=== PATIENT | female | born 1965 | race Caucasian/White ===

== ENCOUNTER 2016-07-11 18:31 | Inpatient (IN) | payer OTHER ==
[2016-07-11] MEDS ORDERED: MAGNESIUM SULF 50% (8.12 MEQ/2 ML-1 GM VIAL) IVPB ONE (20:07)
[2016-07-11] MEDS ORDERED: IPRATROPIUM BR 0.02% 0.5 MG/2.5 ML VIAL.NEB. NEB ONE ×2 (20:07→22:56)
[2016-07-11] MEDS ORDERED: ALBUTEROL SO4 0.083% IH SOL 2.5 MG/3 ML VIAL.NEB. NEB ONE ×2 (20:07→21:20)
--- NOTE | 2016-07-11 20:32 | PDOC ---
History of Present Illness - General History Source: Patient Exam Limitations: No Limitations - History of Present Illness Initial Comments: 07/11/16 20:40 The patient is a 50 year old female with a significant past medical history of COPD, asthma, depression presents to the emergency department for difficulty breathing for 10 days. Since July 01, the patient has had increasing wheezing and shortness of breath. She reports that she typically is unable to produce some phlegm or sputum. She was put on azithromycin pack by her boiler technician Dr. Julian one week ago and completed the course without improvement in symptoms. She's been using her medications without relief. Patient denies fevers , chills. Patient denies chest pain. PCP: Dr. Mariee <Zackery Perkins - Last Filed: 07/11/16 23:53> - General History Source: Patient Exam Limitations: No Limitations <Cameron Parker - Last Filed: 07/12/16 00:27> - General Chief Complaint: Shortness of Breath Stated Complaint: ASTHMA/DIFF BREATHING Time Seen by Provider: 07/11/16 19:41 Past History <Zackery Perkins - Last Filed: 07/11/16 23:53> - Past Medical History Asthma: Yes COPD: Yes Hypercholesterolemia: Yes Psychiatric Problems: Yes (DEPRESSION) - Surgical History Abdominal Surgery: Yes (tubal ligation) - Immunization History Immunization Up to Date: Yes - Psycho/Social/Smoking Cessation Hx Anxiety: No Suicidal Ideation: No Smoking Status: Yes Smoking History: Former smoker Have you smoked in the past 12 months: Yes Number of Cigarettes Smoked Daily: 5 If you are a former smoker, when did you quit?: 2 MO AGO Cigars Per Day: 0 Information on smoking cessation initiated: Yes 'Breaking Loose' booklet given: 07/11/16 Hx Alcohol Use: No Drug/Substance Use Hx: No Substance Use Type: None <Cameron Parker - Last Filed: 07/12/16 00:27> - Past Medical History Allergies/Adverse Reactions: Allergies Allergy/AdvReac Type Severity Reaction Status Date / Time No Known Allergies Allergy Verified 07/11/16 18:34 Home Medications: Ambulatory Orders Loratadine [Claritin] 10 mg PO DAILY 11/07/11 Montelukast Na [Singulair -] 10 mg PO HS 11/07/11 Omeprazole Magnesium [Prilosec Otc] 40 mg PO DAILY 11/07/11 Albuterol 2.5/Ipratropium 0.5 [Duoneb -] 1 neb NEB QID #20 vial 09/09/14 Albuterol Sulfate Inhaler - [Ventolin HFA Inhaler -] 1 - 2 inh PO Q4H PRN Salmeterol/Fluticasone [Advair 100Mcg/50Mcg -] 1 inh PO DAILY 09/09/14 Sertraline HCl [Zoloft] 50 mg PO DAILY 09/09/14 Trazodone HCl [Desyrel -] 50 mg PO HS 09/09/14 Review of Systems - Review of Systems Able to Perform ROS?: Yes Comments:: 07/11/16 20:40 GENERAL/CONSTITUTIONAL: No fever or chills. No weakness. HEAD, EYES, EARS, NOSE AND THROAT: No change in vision. No ear pain or discharge. No sore throat. CARDIOVASCULAR: + SOB + wheezing. No chest pain. RESPIRATORY: No cough, wheezing, or hemoptysis. GASTROINTESTINAL: No nausea, vomiting, diarrhea or constipation. GENITOURINARY: No dysuria, frequency, or change in urination. MUSCULOSKELETAL: No joint or muscle swelling or pain. No neck or back pain. SKIN: No rash NEUROLOGIC: No headache, vertigo, loss of consciousness, or change in strength/ sensation. ENDOCRINE: No increased thirst. No abnormal weight change. HEMATOLOGIC/LYMPHATIC: No anemia, easy bleeding, or history of blood clots. ALLERGIC/IMMUNOLOGIC: No hives or skin allergy. <Zackery Perkins - Last Filed: 07/11/16 23:53> *Physical Exam - Vital Signs Last Vital Signs Temp Pulse Resp BP Pulse Ox 98.3 F 98 H 18 104/62 94 L 07/11/16 18:34 07/11/16 18:34 07/11/16 18:34 07/11/16 18:34 07/11/16 18:34 - Physical Exam Comments: 07/11/16 20:41 GENERAL: Awake, alert, and fully oriented, in no acute distress HEAD: No signs of trauma EYES: PERRLA, EOMI, sclera anicteric, conjunctiva clear ENT: Auricles normal inspection, hearing grossly normal, nares patent, oropharynx clear without exudates. Moist mucosa NECK: Normal ROM, supple, no lymphadenopathy, JVD, or masses LUNGS: Tight breathe sounds with occasional respiratory wheezing bilaterally. No crackles. HEART: Regular rate and rhythm, normal S1 and S2, no murmurs, rubs or gallops ABDOMEN: Soft, nontender, normoactive bowel sounds. No guarding, no rebound. No masses EXTREMITIES: Normal range of motion, no edema. No clubbing or cyanosis. No cords, erythema, or tenderness NEUROLOGICAL: Cranial nerves II through XII grossly intact. Normal speech, normal gait SKIN: Warm, Dry, normal turgor, no rashes or lesions noted. <Zackery Perkins - Last Filed: 07/11/16 23:53> - Vital Signs Last Vital Signs Temp Pulse Resp BP Pulse Ox 98.3 F 98 H 18 104/62 94 L 07/11/16 18:34 07/11/16 18:34 07/11/16 18:34 07/11/16 18:34 07/11/16 18:34 <Cameron Parker - Last Filed: 07/12/16 00:27> Heart Score/ECG Review #1 ECG reviewed & interpreted by me at: 21:10 07/12/16 00:24 NSR 80, no std/gary, T wave flat aVL, TWI V2, QTC 454 msec <Cameron Parker - Last Filed: 07/12/16 00:27> ED Treatment Course - LABORATORY CBC & Chemistry Diagram: 07/11/16 22:35 07/11/16 22:35 <Zackery Perkins - Last Filed: 07/11/16 23:53> - LABORATORY CBC & Chemistry Diagram: 07/11/16 22:35 07/11/16 22:35 - RADIOLOGY Radiology Studies Ordered: Category Date Time Status CHEST X-RAY PORTABLE* [RAD] Stat Radiology 07/11/16 19:59 Ordered <Cameron Parker - Last Filed: 07/12/16 00:27> Medical Decision Making - Medical Decision Making 07/11/16 20:28 A portion of this note was documented by scribe services under my direction. I have reviewed the details of the note, within reason, and agree with the documentation with the following case summary and management plan written by me. Patient treated in the ED. Nursing notes are reviewed and incorporated into the medical decision-making. Vital signs reviewed. Peripheral IV access obtained by the nurse, laboratory studies are drawn and sent, reviewed and interpreted by myself. Vital Signs Temp Pulse Resp BP Pulse Ox 98.3 F 98 H 18 104/62 94 L 07/11/16 18:34 07/11/16 18:34 07/11/16 18:34 07/11/16 18:34 07/11/16 18:34 50-year-old female with past medical history of COPD, asthma, depression presents to the emergency department for difficulty breathing. Since July 01, the patient has had increasing wheezing and shortness of breath. She reports that typically she is unable to produce some phlegm or sputum. She had initiated on azithromycin pack by her boiler technician Dr. Julian one week ago and completed course without improvement in symptoms. She's been using her medications without relief. Denies fevers, chills. Denies chest pain. Came into the emergency room for further evaluation. Pt is likely with COPD exacerbation given tight breath sounds. Patient started taking 40 mg prednisone today. Will write nebs and IV magnesium. Chest xray, ECG , trop, BNP. Will r/o other causes such as IL, CHF. I suspect the patient will likely need to be admitted to the hospital for further evaluation. 07/12/16 00:25 07/12/16 00:25 Chest xray reviewed. Cannot rule out infiltrates. CBC, BMP 07/11/16 22:35 07/11/16 22:35 CMP Sodium 144 mmol/L (136-145) 07/11/16 22:35 Potassium 4.0 mmol/L (3.5-5.1) 07/11/16 22:35 Chloride 106 mmol/L (98-107) 07/11/16 22:35 Carbon Dioxide 24 mmol/L (21-32) 07/11/16 22:35 Anion Gap 14 (8-16) 07/11/16 22:35 BUN 13 mg/dL (7-18) 07/11/16 22:35 Creatinine 1.2 mg/dL (0.55-1.02) H D 07/11/16 22:35 Creat Clearance w eGFR 47.18 (>60) 07/11/16 22:35 Random Glucose 151 mg/dL (74-106) H D 07/11/16 22:35 Lactic Acid 3.900 mmol/L (0.4-2.0) H* 07/11/16 22:35 Calcium 9.1 mg/dL (8.5-10.1) 07/11/16 22:35 Magnesium 3.3 mg/dL (1.8-2.4) H D 07/11/16 22:35 Total Bilirubin 0.4 mg/dL (0.2-1.0) 07/11/16 22:35 AST 13 U/L (15-37) L 07/11/16 22:35 ALT 23 U/L (12-78) 07/11/16 22:35 Alkaline Phosphatase 76 U/L (45-117) 07/11/16 22:35 Creatine Kinase 52 IU/L (26-192) 07/11/16 22:35 Troponin I < 0.02 ng/ml (0.00-0.05) 07/11/16 22:35 B-Natriuretic Peptide 272.37 pg/ml (5-125) H 07/11/16 20:52 Total Protein 7.2 g/dl (6.4-8.2) 07/11/16 22:35 Albumin 4.0 g/dl (3.4-5.0) 07/11/16 22:35 Labs reviewed. After nebulizers and magnesium, the patient reported significant relief and improvement. However, initial lactic acid was 2.3. This was made to recheck lactic acid. 2nd lactic acid was 3.9. Given the elevation of lactic acid, IV levaquin was ordered. Case was discussed with Dr. Hodges, who accepts the patient to med/surg admission. Case discussed in detail with admitting physician including history, physical exam and ancillary studies. Admitting physician has assumed care for the patient, will follow all pending diagnostics and will complete the evaluation and treatment. <Cameron Parker - Last Filed: 07/12/16 00:27> *DC/Admit/Observation/Transfer - Attestations Scribe Attestion: 07/11/16 20:41 Documentation prepared by Zackery Perkins, acting as medical claims manager for Cameron Parker MD, . <Zackery Perkins - Last Filed: 07/11/16 23:53> - Discharge Dispostion Admit: Yes <Cameron Parker - Last Filed: 07/12/16 00:27> Diagnosis at time of Disposition: COPD exacerbation, Lactic acidosis - Discharge Dispostion Condition at time of disposition: Stable
[2016-07-11] MEDS ORDERED: MAGNESIUM SULF 50% (8.12 MEQ/2 ML-1 GM VIAL) ONE (21:20)
[2016-07-11 22:41] LABS: ALBUMIN 4.3 g/dl (3.4-5.0); ANION GAP 9 (8-16); BILIRUBIN,TOTAL 0.4 mg/dL (0.2-1.0); CALCIUM 9.5 mg/dL (8.5-10.1); CO2 26 mmol/L (21-32); CREATININE 0.9 mg/dL (0.55-1.02); GLUCOSE,RANDOM 122 mg/dL (74-106); SGOT/AST 14 U/L (15-37); SGPT/ALT 24 U/L (12-78); TOT PROT 7.3 g/dl (6.4-8.2)
[2016-07-11 22:43] LABS: ALK PHOS 79 U/L (45-117); TROPONIN I < 0.02 ng/ml (0.00-0.05)
[2016-07-11 22:44] LABS: VENOUS BLOOD GAS HCO3 25.7 meq/L (22-29); VENOUS PH 7.37 (7.31-7.41)
[2016-07-11 22:45] LABS: BASOPHIL 0.6 % (0-2.0); NEUTROPHILS 87.4 % (42.8-82.8); PLATELET COUNT 287 K/MM3 (134-434); RDW 13.9 % (11.6-15.6); WHITE BLOOD COUNT 7.3 K/mm3 (4.0-10.0)
[2016-07-11 23:17] LABS: ANION GAP 14 (8-16); BILIRUBIN,TOTAL 0.4 mg/dL (0.2-1.0); CALCIUM 9.1 mg/dL (8.5-10.1); CO2 24 mmol/L (21-32); CREATININE 1.2 mg/dL (0.55-1.02); GLUCOSE,RANDOM 151 mg/dL (74-106); MAGNESIUM 3.3 mg/dL (1.8-2.4); SGOT/AST 13 U/L (15-37); SGPT/ALT 23 U/L (12-78); TOT PROT 7.2 g/dl (6.4-8.2)
[2016-07-11 23:20] LABS: ALK PHOS 76 U/L (45-117); TROPONIN I < 0.02 ng/ml (0.00-0.05)
[2016-07-11] MEDS ORDERED: RANITIDINE HCL 150 MG TABLET (FP) PO ONE (23:20)
[2016-07-11] MEDS ORDERED: LEVOFLOXACIN 500 MG IVPB 100 ML IVPB ONE (23:43)
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
[2016-07-12] MEDS ORDERED: ONDANSETRON 4 MG/2 ML VIAL IVPB PRN (00:02)
[2016-07-12] MEDS ORDERED: RANITIDINE HCL 150 MG TABLET (FP) ONE (00:13)
[2016-07-12] MEDS ORDERED: LEVOFLOXACIN 500 MG IVPB 100 ML IVPB ONE (00:13)
[2016-07-12] MEDS: SODIUM CHLORIDE 1,000 ML IV SCH ×2 (01:29→10:58)
[2016-07-12] MEDS ORDERED: traZODone HCL 50 MG TABLET (FP) PO SCH (03:15)
[2016-07-12 03:24] VITALS: BMI 22.4
[2016-07-12] MEDS: ACETAMINOPHEN 325 MG TABLET (FP) PO PRN ×2 (03:35→10:57)
[2016-07-12] MEDS: ALBUTEROL SO4 2.5/IPRATROPIUM 0.5 INH SOL 3 ML VIAL.NEB. NEB SCH ×2 (06:45→11:00)
[2016-07-12 08:09] LABS: BASOPHIL 0.6 % (0-2.0); EOSINOPHIL 0.9 % (0-4.5); MCH 29.5 pg (25.7-33.7); MCHC 33.8 g/dl (32.0-36.0); MEAN CELL VOLUME 87.3 fl (80-96); NEUTROPHILS 57.4 % (42.8-82.8); PLATELET COUNT 214 K/MM3 (134-434); RDW 14.1 % (11.6-15.6); WHITE BLOOD COUNT 8.2 K/mm3 (4.0-10.0)
[2016-07-12] MEDS ORDERED: predniSONE 20 MG TABLET (UD) PO SCH (10:00)
[2016-07-12] MEDS ORDERED: LORATADINE 10 MG TABLET PO SCH (10:00)
[2016-07-12] MEDS ORDERED: FLUTICASONE/SALMETEROL 100 MCG/50 MCG DISKUS IH SCH (10:00)
[2016-07-12] MEDS ORDERED: SERTRALINE HCL 50 MG TABLET (FP) PO SCH (10:00)
[2016-07-12] MEDS ORDERED: LEVOFLOXACIN 500 MG IVPB 100 ML IVPB SCH (10:00)
[2016-07-12 10:17] LABS: CALCIUM 8.8 mg/dL (8.5-10.1); CREATININE 0.7 mg/dL (0.55-1.02)
[2016-07-12 10:45] VITALS: BP 107/60; TEMP 98.4
[2016-07-12 11:10] VITALS: PULSE 72
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
--- NOTE | 2016-07-12 13:58 | CONSULT ---
Consult Consult Specialty:: PULMONARY Referred by:: STACI Reason for Consultation:: SOB - History of Present Illness Chief Complaint: SOB History of Present Illness: The patient is a 50 year old female with a significant past medical history of COPD, asthma, depression presents to the emergency department for difficulty breathing for 10 days. Since July 01, the patient has had increasing wheezing and shortness of breath. She reports that she typically is unable to produce some phlegm or sputum. She was put on azithromycin pack by her junior accountant bookkeeper Dr. Shelby one week ago and completed the course without improvement in symptoms. She's been using her medications without relief. Patient denies fevers , chills. Patient denies chest pain. - History Source History Provided By: Patient, Medical Record Limitations to Obtaining History: No Limitations - Past Medical History SHEET CUTTER: No: Alzheimer's Cardio/Vascular: No: AFIB Pulmonary: Yes: Asthma, COPD. No: O2 Dependent, Sleep Apnea Gastrointestinal: No: Ascites Hepatobiliary: No: Cirrhosis Renal/: No: Renal Failure - Alcohol/Substance Use Hx Alcohol Use: No - Smoking History Smoking history: Former smoker Have you smoked in the past 12 months: Yes Aproximately how many cigarettes per day: 5 If you are a former smoker, when did you quit?: 2 MO AGO Home Medications - Allergies Allergies/Adverse Reactions: Allergies Allergy/AdvReac Type Severity Reaction Status Date / Time No Known Allergies Allergy Verified 07/11/16 18:34 - Home Medications Home Medications: Ambulatory Orders Loratadine [Claritin] 10 mg PO DAILY 11/07/11 Omeprazole Magnesium [Prilosec Otc] 40 mg PO DAILY 11/07/11 Albuterol Sulfate Inhaler - [Ventolin HFA Inhaler -] 1 - 2 inh PO Q4H PRN #1 inhaler 07/12/16 Methylprednisolone [Medrol Dose Ritesh] 4 mg PO ASDIR #21 tablet 07/12/16 Montelukast Na [Singulair -] 10 mg PO HS #30 tablet 07/12/16 Salmeterol/Fluticasone [Advair 100Mcg/50Mcg -] 1 inh PO BID #1 inhaler 07/12/16 Sertraline HCl [Zoloft] 50 mg PO DAILY #30 tablet 07/12/16 Trazodone HCl [Desyrel -] 50 mg PO HS #30 tablet 07/12/16 Family Disease History - Family Disease History Family History: Unremarkable Review of Systems - Review of Systems Constitutional: reports: Weakness. denies: Fever Cardiovascular: denies: Chest Pain Respiratory: reports: Cough, Exercise Intolerance, Wheezing. denies: Hemoptysis Gastrointestinal: denies: Abdominal Pain Physical Exam Vital Sings: Vital Signs Temperature 98.4 F 07/12/16 10:00 Pulse Rate 72 07/12/16 11:00 Respiratory Rate 18 07/12/16 10:00 Blood Pressure 107/60 07/12/16 10:00 O2 Sat by Pulse Oximetry (%) 96 07/12/16 11:00 Constitutional: Yes: Calm Eyes: Yes: EOM Intact HENT: Yes: Normocephalic Neck: Yes: Trachea Midline Cardiovascular: Yes: Regular Rate and Rhythm Respiratory: Yes: Diminished. No: Wheezes Gastrointestinal: Yes: Normal Bowel Sounds Edema: No Labs: CBC, BMP 07/12/16 06:15 07/12/16 06:15 REST REVIEWED Imaging - Results Chest X-ray: Image Reviewed Cat Scan: Image Reviewed Problem List - Problems (1) COPD exacerbation Code(s): J44.1 - CHRONIC OBSTRUCTIVE PULMONARY DISEASE W (ACUTE) EXACERBATION Assessment/Plan A/E COPD RESOLVED AGREE WITH CONTINUING RX AN OUTPATIENT WOULD CONTINUE MARGY/LABA/ICS/LAMA SHORT COURSE OF TAPERING STEROIDS DR SHELBY TO FOLLOW IN OFFICE Marcie CESAR MD
--- NOTE | 2016-07-12 16:19 | EKG ---
Test Reason : Blood Pressure : / mmHG Vent. Rate : 080 BPM Atrial Rate : 080 BPM P-R Int : 194 ms QRS Dur : 072 ms QT Int : 394 ms P-R-T Axes : 076 059 074 degrees QTc Int : 454 ms NORMAL SINUS RHYTHM WITH SINUS ARRHYTHMIA NORMAL ECG WHEN COMPARED WITH ECG OF 09-SEP-2014 20:35, NO SIGNIFICANT CHANGE WAS FOUND Confirmed by MAYUR SPENCE MD ([id number]) on 07/12/2016 4:19:39 PM Referred By: Confirmed By:MAYUR SPENCE MD
[2016-07-12] MEDS ORDERED: MONTELUKAST NA 10 MG TABLET PO SCH (22:00)
== END 2016-07-12 15:49 | disposition home or self-care (01) | DRG 140 ==
LOC: JER 18:31 → JERBED 07-12 00:34 → J5S 07-12 02:59
PROVIDERS: ADMIT Internal Medicine; ATTEND Internal Medicine
DX: J44.1 Chronic obstructive pulmonary disease with (acute) exacerbation (principal); E87.2 Acidosis; N17.9 Acute kidney failure, unspecified; Z87.891 Personal history of nicotine dependence
CPT/HCPCS: 36415; 71010-TC; 80048; 80053; 82550; 82803; 83605; 83735; 83880; 84484; 85025; 87040; 87086; 87804; 93005; 93010; 94640; 99284-25

== ENCOUNTER 2019-03-24 22:22 | Emergency (ER) | payer OTHER ==
[2019-03-24 22:36] VITALS: BP 111/69; PULSE 76; TEMP 98; BMI 19.2
[2019-03-24] MEDS ORDERED: ACETAMINOPHEN 500 MG TABLET (FP) PO ONE (23:17)
--- NOTE | 2019-03-24 23:45 | PDOC ---
History of Present Illness - General Chief Complaint: Injury Stated Complaint: INJURY Time Seen by Provider: 03/24/19 22:49 History Source: Patient Exam Limitations: No Limitations - History of Present Illness Initial Comments: 03/24/19 23:43 HISTORY OF PRESENT ILLNESS: 53-year-old woman past medical history of COPD/ chronic bronchitis presents emergency department for evaluation of right ankle pain status post car door closing on her foot. Patient reports she was resting her foot outside the door and did not realize the passenger side door began to close all she wasn't pain attention. Patient reports after the incident happened she went to [facility] and while at [facility] noticed that her ankle began to hurt and was throbbing. Patient was ambulatory on her ankle after the injury but before going to [facility]. No recent travel or sick contacts. PAST MEDICAL HISTORY: see HPI SURGICAL HISTORY: Denies ALLERGIES: No known drug allergies REVIEW OF SYSTEMS General/Constitutional: Denies fever or chills. Denies weakness, weight change. HEENT: Denies change in vision. Denies ear pain or discharge. Denies sore throat. Cardiovascular: Denies chest pain or shortness of breath. Respiratory: Denies cough, wheezing, or hemoptysis. Gastrointestinal: Denies nausea, vomiting, diarrhea or constipation. Denies rectal bleeding. Genitourinary: Denies dysuria, frequency, or change in urination. Musculoskeletal: see HPI Skin and breasts: Denies rash or easy bruising. Neurologic: Denies headache, vertigo, loss of consciousness, or loss of sensation. Psychiatric: Denies depression or anxiety. Endocrine: Denies increased thirst. Denies abnormal weight change. Hematologic/Lymphatic: Denies anemia, easy bleeding, or history of blood clots. Allergic/Immunologic: Denies hives or skin allergy. Denies latex allergy. PHYSICAL EXAM General Appearance: Well-appearing, appropriately dressed. No apparent distress , no intoxication. Respiratory/Chest: Lungs CTAB. No shortness of breath, chest tenderness, respiratory distress, accessory muscle use. No crackles, rales, rhonchi, stridor , wheezing, dullness Cardiovascular: RRR. S1, S2. No JVD, murmur, bradycardia, tachycardia. Vascular Pulses: Dorsalis-Pedis (R): 2+, Dorsalis-Pedis (L): 2+ Musculoskeletal/Extremities: Normal inspection. FROM of all extremities, normal capillary refill. Pelvis Stable. No CVA tenderness. No tenderness to extremities, pedal edema, swelling, erythema or deformity. NVI Integumentary: Appropriate color, dry, warm. No cyanosis, erythema, jaundice or rash Past History - Past Medical History Allergies/Adverse Reactions: Allergies Allergy/AdvReac Type Severity Reaction Status Date / Time No Known Allergies Allergy Verified 03/24/19 22:33 Home Medications: Ambulatory Orders Loratadine [Claritin] 10 mg PO DAILY 11/07/11 Omeprazole Magnesium [Prilosec Otc] 40 mg PO DAILY 11/07/11 Albuterol Sulfate Inhaler - [Ventolin HFA Inhaler -] 1 - 2 inh PO Q4H PRN #1 inhaler 07/12/16 Methylprednisolone [Medrol Dose Ritesh] 4 mg PO ASDIR #21 tablet 07/12/16 Montelukast Na [Singulair -] 10 mg PO HS #30 tablet 07/12/16 Salmeterol/Fluticasone [Advair 100Mcg/50Mcg -] 1 inh PO BID #1 inhaler 07/12/16 Sertraline HCl [Zoloft] 50 mg PO DAILY #30 tablet 07/12/16 traZODone HCL [Desyrel -] 50 mg PO HS #30 tablet 07/12/16 Asthma: Yes COPD: Yes Hypercholesterolemia: Yes Psychiatric Problems: Yes (DEPRESSION) - Surgical History Abdominal Surgery: Yes (tubal ligation) - Immunization History Immunization Up to Date: Yes - Psycho Social/Smoking Cessation Hx Smoking Status: Yes Smoking History: Current every day smoker Have you smoked in the past 12 months: Yes Number of Cigarettes Smoked Daily: 20 If you are a former smoker, when did you quit?: 2 MO AGO Cigars Per Day: 0 Information on smoking cessation initiated: No 'Breaking Loose' booklet given: 07/11/16 Hx Alcohol Use: No Drug/Substance Use Hx: No Substance Use Type: None *Physical Exam - Vital Signs Last Vital Signs Temp Pulse Resp BP Pulse Ox 98.0 F 76 18 111/69 97 03/24/19 22:34 03/24/19 22:34 03/24/19 22:34 03/24/19 22:34 03/24/19 22:34 ED Treatment Course - RADIOLOGY Radiology Studies Ordered: Category Date Time Status ANKLE & FOOT-RIGHT* [RAD] Stat Radiology 03/24/19 23:16 Ordered Medical Decision Making - Medical Decision Making 03/24/19 23:45 A/P: 53-year-old woman with right ankle pain status post car door closing on its slowly X-rays of right ankle and foot Tylenol 1 g orally now Ice pack Reassess 03/25/19 00:00 X-rays as read by me: Mortise is intact. No fractures or dislocations are present. No significant change from study performed 06/19/2005. Rodney wrap Discharge home I discussed the physical exam findings, ancillary test results and final diagnoses with the patient. I answered all of the patient's questions. The patient was satisfied with the care received and felt comfortable with the discharge plan and treatment plan. The patient will call their primary care physician within 24 hours to arrange follow-up and will return to the Emergency Department with any new, persistent or worsening symptoms. Portions of this note have been documented using voice recognition software. As a result, errors may occur in the photographic plate maker process. Effort has been made to correct all grammatical and photographic plate maker error, but some may have been missed. Discharge - Discharge Information Problems reviewed: Yes Clinical Impression/Diagnosis: Acute right ankle pain Condition: Fair Disposition: HOME - Admission No - Follow up/Referral Referrals: Milan Carrillo [Primary Care Provider] - Tobi Thakur MD [Staff Physician] - - Patient Discharge Instructions Additional Instructions: Take Tylenol or Motrin as needed for pain. Follow manufacturers instructions for appropriate dosage. Rest. Apply ice for 20 minutes and removed for at least 20 minutes before reapplying the ice. Keep Rodney wrap on your ankle as much as possible to help decrease some of the swelling control pain. Whenever possible keep your foot elevated to decrease swelling to your ankle. You've been given the number for an orthopedist. If symptoms do not resolve within the next 7 days call the orthopedist for further evaluation. Return to emergency department for discoloration of the foot, numbness or tingling to the foot, worsening pain, or any other concerns. Thank you very much for choosing us to provide your emergent healthcare needs. - Post Discharge Activity
[2019-03-25] MEDS ORDERED: ACETAMINOPHEN 325 MG TABLET (FP) ONE (00:16)
== END 2019-03-25 00:38 | disposition home or self-care (01) ==
LOC: JER 22:22
DX: M25.571 Pain in right ankle and joints of right foot (principal); V48.4XXA Person boarding or alighting a car injured in noncollision transport accident, initial encounter; Y92.488 Other paved roadways as the place of occurrence of the external cause; Y93.89 Activity, other specified; Y99.8 Other external cause status; J42 Unspecified chronic bronchitis; J45.909 Unspecified asthma, uncomplicated; E78.00 Pure hypercholesterolemia, unspecified; F32.9 Major depressive disorder, single episode, unspecified
CPT/HCPCS: 73610-TC-RT-FY; 73630-TC-RT-FY; 99282-25

== ENCOUNTER 2020-05-22 16:34 | Emergency (ER) | payer OTHER ==
[2020-05-22] MEDS: ALBUTEROL SO4 2.5/IPRATROPIUM 0.5 INH SOL 3 ML VIAL.NEB. NEB SCH ×4 (16:35→17:38)
[2020-05-22 16:45] VITALS: BMI 20.1
[2020-05-22] MEDS ORDERED: predniSONE 20 MG TABLET (UD) PO ONE (17:31)
[2020-05-22] MEDS ORDERED: predniSONE 20 MG TABLET (UD) ONE (17:32)
[2020-05-22 19:03] VITALS: BP 98/57; PULSE 78; TEMP 98
== END 2020-05-22 20:05 | disposition home or self-care (01) ==
LOC: JER 16:34
PROC: 3E0F7GC Introduction of Other Therapeutic Substance into Respiratory Tract, Via Natural or Artificial Opening (ICD-10-PCS; principal; 2020-05-22)
DX: J44.1 Chronic obstructive pulmonary disease with (acute) exacerbation (principal)
CPT/HCPCS: 71045-TC-FY; 99284-25